=== PATIENT | female | born 1970 | race Asian ===

== ENCOUNTER 2018-03-17 07:22 | Day surgery (SDC) | payer OTHER ==
[2018-03-17 07:41] LABS: Specific Gravity 1.015 (1.005-1.030)
[2018-03-17] MEDS ORDERED: Ringers Lactate 0 ML IV ONE (07:42)
[2018-03-17] MEDS: NA CHLORIDE 0.9% 1,000 ML ONE ×2 (07:50→09:30)
[2018-03-17] MEDS ORDERED: ONDANSETRON HCL 40 MG/20 ML VIAL ONE (09:46)
[2018-03-17] MEDS ORDERED: PROPOFOL 200 MG/20 ML VIAL IV ONE (09:46)
[2018-03-17] MEDS ORDERED: MIDAZOLAM HCL 2 MG/2 ML INJ ONE (09:46)
[2018-03-17] MEDS ORDERED: LIDOCAINE 2% MPF 5 ML VIAL ONE (09:46)
[2018-03-17] MEDS ORDERED: FENTANYL CITR 100 MCG/2 ML ONE (10:00)
[2018-03-17] MEDS ORDERED: KETOROLAC 30 MG/ML INJ ONE (10:11)
[2018-03-17] MEDS ORDERED: HYDROCODONE/APAP 5/325 MG TAB ONE (11:06)
--- NOTE | 2018-03-19 04:34 | OP ---
Date of Procedure: 03/17/2018 Surgeon: Nydia Andrea MD Preoperative Diagnoses: Menorrhagia, possible endometrial polyp, the patient on tamoxifen with histo ry of breast cancer. Postoperative Diagnoses: Endometrial polyp, heavy menstrual bleeding, breast cancer. Procedure Performed: Diagnostic hysteroscopy followed by operative hysteroscopy, polypectomy with Sy mphion device, and D and C. Estimated Blood Loss: Minimal. Complications: None. Drains: None. Specimens: Endometrial curettings and polyps. Anesthesia: General with LMA. Condition: Stable. Findings: Inside the uterine cavity, the polyp was at the right cornual end on the fundal wall. The endometrium appeared to be even, and no irregular areas in the rest of the cavity. Polyp was remove d in its entirety. An adequate sampling was performed. Indications: The patient is a 47-year-old with history of breast cancer, after treatment, now on bryan oxifen since she is premenopausal. Her periods are heavy. Ultrasound was performed. The endometriu m appeared to be thick and suspicious for a polyp, so she was consented for hysteroscopy, polypectomy , D and C given the fact that she has tamoxifen and risk of endometrial polyps and to rule out endome trial adenocarcinoma. This procedure was scheduled. Procedure In Detail: After bringing the patient to the OR, after reverifying the consent, she was pl aced in a supine fashion. General anesthesia was given. She was placed in a dorsal lithotomy positi on using Ryan stirrups. A speculum was placed to expose the cervix. Anterior lip grasped with 2 Al lis clamps. Prep x3 with Betadine was done. Symphion scope was used to enter the cervical canal aft er dilating the cervical canal to 18-Serbian. Once the device was primed, it was ready to go. Normal saline was used for infusion. Uterine cavity was entered and polyp visualized at the right coronal end on the fundal aspect of the endometrial wall. The rest of the cavity appeared to be unremarkable . The Symphion resector was attached. Once this was inserted thorough, visualization was obtained, then the cutter was used to resect the polyp completely. Then, circumferential endometrial dissectio n was done to obtain adequate sample. Cautery was used and placed as needed. The cavity was irrigat ed and drained. The scope was removed. The endometrial curettings and the polyp were all sent off f or permanent pathology. Instrument, needle, and sponge counts were done and were correct at the end of the case. The fluid deficit was minimal. The pressure set was at 105 mmHg. CAROL/VALERIA Voice ID: [id number] Report ID: [id number]
== END 2018-03-17 11:45 | disposition home or self-care (01) ==
LOC: OR 07:22
PROVIDERS: ATTEND Obstetrics & Gynecology
PROC: 0UDB7ZX Extraction of Endometrium, Via Natural or Artificial Opening, Diagnostic (ICD-10-PCS; 2018-03-17)
PROC: 0UB98ZX Excision of Uterus, Via Natural or Artificial Opening Endoscopic, Diagnostic (ICD-10-PCS; principal; 2018-03-17 09:30)
DX: N92.0 Excessive and frequent menstruation with regular cycle (principal); N84.0 Polyp of corpus uteri; N94.12 Deep dyspareunia; C50.919 Malignant neoplasm of unspecified site of unspecified female breast; E11.9 Type 2 diabetes mellitus without complications; K21.9 Gastro-esophageal reflux disease without esophagitis; E78.00 Pure hypercholesterolemia, unspecified; E78.5 Hyperlipidemia, unspecified; E55.9 Vitamin D deficiency, unspecified; Z79.810 Long term (current) use of selective estrogen receptor modulators (SERMs); Z82.49 Family history of ischemic heart disease and other diseases of the circulatory system; Z83.3 Family history of diabetes mellitus
CPT/HCPCS: 81025; 82962; 88305; J2250; J2405; J3010; J7030

== ENCOUNTER 2018-04-16 06:48 | Day surgery (SDC) | payer OTHER ==
[2018-04-13 15:32] LABS: Urine Appearance CLEAR; Urine Bilirubin NEGATIVE (NEG); Urine Blood NEGATIVE (NEG); Urine Color YELLOW; Urine Glucose TRACE (NEG); Urine Protein NEGATIVE (NEG); Urine Specific Gravity 1.015 (1.005-1.030); Urine Urobilinogen 0.2 mg/dL (0.2-1.0); Urine pH 6.5 (5.0-7.0)
[2018-04-13 15:36] LABS: Urine Microscopic Reflex NO UMIC
[2018-04-13 16:17] LABS: Absolute Lymphocytes (CBC) 2.6 K/uL (0.7-4.9); Absolute Monocytes 0.5 K/uL (0.1-1.3); Absolute Neutrophil 3.8 K/uL (1.8-8.0); Basophils % 0.9 % (0-1.3); Eosinophils % 1.5 % (0-4.4); Hematocrit 40.3 % (36.0-45.0); Lymphocytes % 36.7 % (15.3-44.8); MCH 26.9 pg (27.0-35.0); MCV 81.8 fL (80-100); MPV 8.8 fL (7.6-11.3); Monocytes % 7.4 % (3.3-12.3); RBC Red Blood Cell Count 4.93 M/uL (3.86-4.86)
[2018-04-16] MEDS ORDERED: DEXAMETHASONE 10 MG/ML VIAL ONE (07:02)
[2018-04-16] MEDS ORDERED: PROPOFOL 200 MG/20 ML VIAL IV ONE (07:02)
[2018-04-16] MEDS ORDERED: FENTANYL CITR 100 MCG/2 ML ONE (07:02)
[2018-04-16] MEDS ORDERED: LIDOCAINE 2% MPF 5 ML VIAL ONE (07:02)
[2018-04-16] MEDS ORDERED: ROCURONIUM 50 MG/5 ML VIAL IV ONE (07:02)
[2018-04-16] MEDS ORDERED: MIDAZOLAM HCL 2 MG/2 ML INJ ONE (07:02)
[2018-04-16] MEDS ORDERED: ONDANSETRON HCL 40 MG/20 ML VIAL ONE (07:02)
[2018-04-16] MEDS ORDERED: FENTANYL CITR 250 MCG/5 ML ONE (07:10)
[2018-04-16] MEDS ORDERED: NA CHLORIDE 0.9% 1,000 ML ONE (07:21)
[2018-04-16] MEDS ORDERED: SCOPOLAMINE HYDROBROMIDE PATCH TD ONE (07:32)
[2018-04-16] MEDS: NA CHLORIDE 0.9% 1,000 ML ONE ×2 (08:30→09:07)
[2018-04-16] MEDS: CEFAZOLIN/SWI 1gm 1 GM/10 ML SYR ONE ×2 (08:30→09:06)
[2018-04-16] MEDS ORDERED: KETOROLAC 30 MG/ML INJ ONE (11:23)
[2018-04-16] MEDS: Ringers Lactate 1,000 ML IV ONE ×2 (11:34→11:46)
[2018-04-16] MEDS ORDERED: CEFAZOLIN/SWI 1gm 1 GM/10 ML SYR ONE (11:36)
[2018-04-16] MEDS ORDERED: Mastisol Adhesive Liq ONE (12:03)
[2018-04-16] MEDS: MEPERIDINE HCL 50 MG/ML AMP ONE ×4 (12:16→12:35)
[2018-04-16] MEDS ORDERED: MEPERIDINE HCL 50 MG/ML AMP ONE (12:48)
[2018-04-16] MEDS ORDERED: ONDANSETRON 4 MG/2 ML VIAL ONE (12:48)
[2018-04-16] MEDS ORDERED: PROMETHAZINE 25 MG/ML VIAL ONE (13:06)
[2018-04-16] MEDS ORDERED: HYDROCODONE/APAP 5/325 MG TAB ONE (14:26)
--- NOTE | 2018-04-17 00:40 | OP ---
Date of Procedure: 04/16/2018 Surgeon: Nydia Andrea MD Preoperative Diagnoses: 1.History of breast cancer. 2.Endometrial atypia in the endometrial polyp. 3.Heavy bleeding with regular cycles. Postoperative Diagnoses: 1.History of breast cancer. 2.Endometrial atypia in the endometrial polyp. 3.Heavy bleeding with regular cycles. 4.Extensive endometriosis. Procedures Performed: 1.Total laparoscopic hysterectomy and bilateral salpingo-oophorectomy and pelvic washings. 2.Endometriosis excision. 3.Right ureteral lysis and cystoscopy. Anesthesia: General endotracheal. Specimens: Uterus, tubes and ovaries, washings, and right periureteric endometriosis. Complications: No complications. Drains: No drains. Patient's Condition: Stable. Findings: 1.Endometriosis was found in the right periureteric area, especially in the last 5 cm of the ureter. Small implant on the distal left uterosacral ligament and posterior cul-de-sac. The right utero-ov katerine ligament as well. 2.The scar tissue from the section was minimal. I was able to move and dissect the bladder optimally. 3.No evidence of any omental or peritoneal lesions. 4.The uterus was large; and so, vaginal specimen retrieval bag had to be placed, and the specimen wa s retrieved through the vagina. Indications: The patient is a 47-year-old female, 1, para 1, section x1. She has b een diagnosed with breast cancer, treated appropriately, and currently only on tamoxifen for her ER p ositive premenopausal cancer. She has regular periods, and these have been heavy, and she was evalua renata for this with a transvaginal ultrasound where the lining appeared to be thick. An endometrial sa mpling that was performed using hysteroscopy, showed an endometrial polyp which was resected complete ly and was found to have endometrial hyperplasia with cytologic atypia. In the curettings, there was no atypia, and the curettings were negative for EIN or EIC. After discussing with the patient all her options, especially given the fact that she has atypia whil e taking tamoxifen, in a polyp, recommended to have a hysterectomy. Also discussed about the fact th at she has estrogen receptor positive cancer and by removing both tubes and ovaries that she would be benefitted from decrease in recurrence of her breast cancer. The patient understood this, and discu ssion was held with her oncologist as well, who concurred. She was consented for a hysterectomy, bilateral salpingo-oophorectomy, and pelvic washings, and proce dures as indicated. The patient fully understood that after her hysterectomy that she should resume her tamoxifen until she sees her provider when they would switch her over likely to another agent, fo r example Arimidex. Description Of Procedure: Today, after informed consent was verified in the preoperative area, she w as taken back to the OR. She was placed in a supine fashion on the operating table after 1 g of Ance f was given. She was placed in a dorsal lithotomy position using Ryan stirrups. Pelvic examination was performed. Uterus was found to be about 10- to 12-week size. No adnexal masses. Abdomen, vulva, vagina, and perineum were prepped and draped in a sterile fashion. Robles was placed to drain the bladder and attached to cysto tubing to an LR bag, emptied 300 . The cervix w as exposed, medium VCare was used to insert into the uterus, and this was fixed in place. This area was then draped. A 1-cm infraumbilical incision was made with a scalpel. The fascia was incised as well, tagged with 0 Vicryl sutures. Then, the peritoneum was entered bluntly. Veronique was introduced. Site of entry w as checked and was unremarkable. Upper abdominal surface was completely unremarkable. Please see th e findings for this. A 10-mm suprapubic and 5-mm left lower quadrant ports were placed under direct vision. After enterin g the entire pelvic cavity with the findings as above, plan was made to retract the bowel with the he lp of a stitch in the left upper quadrant. So, the Giuseppe-Sandie needle was taken in the midaxilla ry line. An incision was made for the entry of the Giuseppe-Sandie. A 2-0 Monocryl suture was then taken and was placed through the epiploica on the sigmoid colon. This was brought up through the inc ision from the Giuseppe-Sandie, which was used to retrieve the ends of the suture. Once this was done and retracted appropriately, then the surgery was started. The utero-ovarian liga ment on the left side was taken down. Then, the mesosalpinx and tube were taken down. Then, the rou nd ligament was opened up. The peritoneum on the anterior aspect was incised all the way to the left side by taking down with the LigaSure. Then, the posterior peritoneum was taken down to the level o f the left uterosacral distally attached with the implants. The broad ligament was skeletonized. Ve ssels were skeletonized. Similar procedure was done on the opposite side. Here, the utero-ovarian ligament had a scar from th e posterior aspect of the utero-ovarian to close the distal uterosacral, into the distal uterosacral. Once this was all inspected, then the utero-ovarian ligament was taken down with the help of the rei chen. Tube and mesosalpinx taken down, round ligament taken down, anterior peritoneum connected pos teriorly, taken down to the uterosacral. However, at this spot, there was this large endometriotic i mplants, so we started to trace out the uterine artery completely all the way to its origin, and the ureter was found going underneath it. The soft underlying tissue was from the overlying endometriosis. Once this was done, I was able to take it down with the LigaSure and left the periureteric endohand. Once the distal part of the ureter close to the crossing of the uterine artery was well visualized, then I was able to dissec t while opening up the parametrium all the vessels and the ureter to the right lateral aspect. Then, the bladder peritoneum was cleaned up with the help of a monopolar hook blade once the anterior vagi nal wall was well visualized. This was left alone. Then, the vessels on the right were taken as wel l as uterosacral and the cardinals. The similar sequence on the opposite side as well. Once everyth ing was skeletonized, a circumferential colpotomy was performed with a monopolar hook blade, and ther e was some dissection performed in the right lateral aspect of the cervix with the LigaSure as the re st of it was all with a monopolar cautery. The specimen, once it was detached, I attempted to retrieve the specimen vaginally. However, this wa s not possible due to the size of the uterus. So, an [employer] specimen retrieval bag was taken. It wa s tied with strings after being folded up into an elongated shape with silk sutures on each side. Th en, once this was inserted through the vagina, the proximal suture was cut, the bag opened up to 75% and the specimen once it was put were retrieved and held up. This was descended down into the bag, a nd the bag was closed and the rim was removed. Slowly, the uterine specimen was slipped through. Tubes and ovaries were removed in the usual fashion. Then, on the right side, this was a time I went back to the proximal end of the pelvic ureter at the level of the bifurcation of the common iliacs. Then, I came to open the peritoneum laterally, superior and lateral to the ureter, and then dissecti on was performed from here all the way down to the level of the tunnel to separate the ureter from th e medial leaf of the broad ligament. Once this was done, the vessels of the internal iliac were all exposed. Then, the endometriosis was excised with the help of the bipolar LigaSure. Once the entire specimen was removed, it was like a nodule, and this handed out for permanent pathology. There was 1 implant left on the left ureter which was appearing to be quite adherent to the ureter as well as 1 tiny distal speck left close to the uterosacral. The one at the uterosacral was cauterized. The on e on the ureter had to be dissected. I did not want to dissect both ureters on the same day. So, I left this intact. Most of the endometriosis was minimal in this side. There was enough of justifica tion for leaving it alone today. Once all this was done, I came back to close the vaginal cuff. After thorough irrigation and suction , PDS [address]-1 needle were placed x5, two simples at the angles and three wogtvne-kh-hkz ht in the center for good apposition. Thorough irrigation and suction were performed. All pictures were taken. A 3-0 Monocryl was used to close the peritoneum and tied down. Then, the trocars were removed. The bowel was released. No bl eeding from the site. All the trocar sites were not bleeding as well. At the umbilicus, the fascia was closed with 0 Vicryl in efkaak-kl-osnac fashion and simple 0 Vicryl stitch in the suprapubic area . Once all this was done, the gas was desufflated and the ports were removed. The fascia was closed wi th the help of 0 Vicryl in a fntgzl-ko-ftvje fashion. Cystoscopy was performed with a 17-Maltese sheath, 30-degree lens, and normal saline. The vaginal bul b was removed gently; and on cystoscopy, normal jets of urine from both ureteric orifices. The area above the level of the trigone that appeared to have been raised due to the knots of the PDS. I cont rolled this by popping through the vagina, and they were fine. No evidence of any trauma to the blad vitor or foreign body. So, the case was ended here, and an EBL was 100. Instrument and sponge counts x3 were correct at the end of the case. The patient tolerated the procedure well. She will follow u p with me in 1 week. ANA Voice ID: [id number] Report ID: [id number]
== END 2018-04-16 16:28 | disposition home or self-care (01) ==
LOC: OR 06:48
PROVIDERS: ATTEND Obstetrics & Gynecology
PROC: 0UT24ZZ Resection of Bilateral Ovaries, Percutaneous Endoscopic Approach (ICD-10-PCS; 2018-04-16)
PROC: 0UT74ZZ Resection of Bilateral Fallopian Tubes, Percutaneous Endoscopic Approach (ICD-10-PCS; 2018-04-16)
PROC: 0UBF4ZZ Excision of Cul-de-sac, Percutaneous Endoscopic Approach (ICD-10-PCS; 2018-04-16)
PROC: 0UB44ZZ Excision of Uterine Supporting Structure, Percutaneous Endoscopic Approach (ICD-10-PCS; 2018-04-16)
PROC: 0TN64ZZ Release Right Ureter, Percutaneous Endoscopic Approach (ICD-10-PCS; 2018-04-16)
PROC: 0UT94ZZ Resection of Uterus, Percutaneous Endoscopic Approach (ICD-10-PCS; principal; 2018-04-16 08:30)
DX: N92.0 Excessive and frequent menstruation with regular cycle (principal); N80.3 Endometriosis of pelvic peritoneum; N80.8 Other endometriosis; N84.0 Polyp of corpus uteri; N94.12 Deep dyspareunia; N83.12 Corpus luteum cyst of left ovary; N83.8 Other noninflammatory disorders of ovary, fallopian tube and broad ligament; K21.9 Gastro-esophageal reflux disease without esophagitis; E78.00 Pure hypercholesterolemia, unspecified; E78.5 Hyperlipidemia, unspecified; Z85.3 Personal history of malignant neoplasm of breast; Z79.810 Long term (current) use of selective estrogen receptor modulators (SERMs); Z82.49 Family history of ischemic heart disease and other diseases of the circulatory system; Z83.3 Family history of diabetes mellitus
CPT/HCPCS: 36415; 81003; 81025; 82962; 85025; 86850; 86900; 86901; 88108; 88305; 88307; 88309; J0690; J1100; J2175; J2250; J2405; J2550; J2704; J3010; J7030

== ENCOUNTER 2020-03-28 05:12 | Emergency (ER) | payer BC, OTHER ==
[2020-03-28] MEDS ORDERED: IBUPROFEN 200 MG TAB PO ONE (05:44)
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
[2020-03-28 06:50] VITALS: TEMP 98.5
[2020-03-28 06:55] VITALS: BP 131/94; O2SAT 98
--- NOTE | 2020-03-28 09:09 | RAD REPORT ---
EXAM DESCRIPTION: RAD - Hand Left 3 View - 03/28/2020 5:55 am CLINICAL HISTORY: Pain;Numbness/tingling COMPARISON: No comparisons FINDINGS: No bone or joint abnormality.
== END 2020-03-28 06:41 | disposition home or self-care (01) ==
LOC: ER 05:12
DX: S63.602A Unspecified sprain of left thumb, initial encounter (principal); S43.402A Unspecified sprain of left shoulder joint, initial encounter; X50.9XXA Other and unspecified overexertion or strenuous movements or postures, initial encounter; Y93.9 Activity, unspecified; Y92.9 Unspecified place or not applicable; Z85.3 Personal history of malignant neoplasm of breast; E78.00 Pure hypercholesterolemia, unspecified
CPT/HCPCS: 99284